=== PATIENT | female | born 1940 | race Caucasian/White ===

== ENCOUNTER 2025-03-08 09:24 | Emergency (ER) | payer MEDICARE, OTHER ==
[~2025-03-08] VITALS: Ht 154.9 cm; Wt 59.0 kg
[2025-03-08 10:36] LABS: PLATELET COUNT (AUTO) 234 K/uL (150-450); RED BLOOD CELL COUNT(AUTO) 4.98 MIL/uL (4.0-5.2); RED CELL DISTRIBUTION WIDTH 16.1 % (11.5-15.0); WHITE BLOOD COUNT (AUTO) 12.3 K/uL (4.3-11.0)
[2025-03-08 10:41] LABS: CALCIUM, SERUM 9.5 mg/dL (8.5-10.1); CREATININE 1.0 mg/dL (0.6-1.3); SODIUM SERUM 141.0 mmol/L (136-145); UREA NITROGEN, BLOOD 26.0 mg/dL (7-18)
[2025-03-08 10:45] LABS: INR 0.96 (0.91-1.10)
[2025-03-08] MEDS ORDERED: TRAM50TA2 PO (11:39)
[2025-03-08 11:49] VITALS: BP 135/69; TEMP 98.8; O2SAT 95
== END 2025-03-08 11:50 | disposition home or self-care (01) ==
LOC: ER 09:45
DX: S22.42XA Multiple fractures of ribs, left side, initial encounter for closed fracture (principal); E11.9 Type 2 diabetes mellitus without complications; E86.0 Dehydration; Z95.0 Presence of cardiac pacemaker; Z96.643 Presence of artificial hip joint, bilateral; Z86.79 Personal history of other diseases of the circulatory system; Z60.2 Problems related to living alone; W01.0XXA Fall on same level from slipping, tripping and stumbling without subsequent striking against object, initial encounter; Y93.89 Activity, other specified; Y92.89 Other specified places as the place of occurrence of the external cause; Y99.8 Other external cause status
CPT/HCPCS: 36415; 71250-TC; 80048-TC; 85025-TC; 85730-TC